=== PATIENT | female | born 1960 | race Two or more races ===

== ENCOUNTER 2023-10-20 10:00 | Inpatient (IN) | payer OTHER, MEDICAID ==
[2023-10-19 20:00] VITALS: PULSE 113; RESP 10; O2SAT 100
[2023-10-20] VITALS (34 sets, daily range): BP systolic 70–139; BP diastolic 41–67; PULSE 90–138; RESP 10–25; TEMP 97.2–97.9; O2SAT 95–100
[~2023-10-20] VITALS: Ht 154.9 cm; Wt 60.8 kg
[2023-10-20] MEDS: MORPHINE SULFATE 4 MG/ML SYR/VIAL IV ONE (10:15)
[2023-10-20] MEDS: ONDANSETRON HCL 4 MG/2 ML VIAL IV ONE (10:16)
[2023-10-20] MEDS: SODIUM CHLORIDE 0.9% 1,000 ML IVB ONE (10:16)
[2023-10-20 10:28] LABS: Basophils # (auto) 0 10 ^3/uL (0-0.2); Eosinophils # (auto) 0 10 ^3/uL (0-0.8); Hematocrit 32.2 % (36.0-46.0); Hemoglobin 10.4 g/dL (12.2-16.2); Lymphocytes # (auto) 0.8 10 ^3/uL (0.4-5.4); Lymphocytes % (auto) 17.3 % (10.0-50.0); Mean Corpuscular Hemoglobin 27.6 pg (28.0-32.0); Mean Corpuscular Hgb Conc. 32.4 g/dL (32.0-36.0); Mean Corpuscular Volume 84.9 fL (80.0-100.0); Monocytes # (auto) 0.1 10 ^3/uL (0-1.3); Monocytes % (auto) 1.7 % (0.0-12.0); Nucleated Red Blood Cells % 0.1 %; Platelet Count (auto) 334 10^3/uL (140-450); Red Blood Cells 3.79 10^6/uL (4.0-5.20); Red Cell Distribution Width 18.1 % (11.8-14.3); White Blood Cell 4.9 10^3/uL (4.4-10.8)
[2023-10-20 10:41] LABS: Alanine Aminotransferase 21 U/L (7-40); Alkaline Phosphatase 50 U/L (46-116); Anion Gap 12 (5-15); Aspartate Aminotransferase 12 U/L (13-40); BUN/Creatinine Ratio 28.1 (10.0-20.0); Blood Urea Nitrogen 38 mg/dL (9-23); Calcium 7.7 mg/dL (8.7-10.4); Carbon Dioxide 16 mmol/L (20-30); Chloride 105 mmol/L (98-107); Glucose 288 mg/dL (74-106); Potassium 3.9 mmol/L (3.5-5.1); Sodium 133 mmol/L (136-145)
[2023-10-20 10:42] LABS: Bilirubin, Total 0.4 mg/dL (0.2-1.0); Total Protein 4.4 g/dL (5.7-8.2)
[2023-10-20 10:53] LABS: Lactic Acid w/Reflex 4.5 mmol/L (0.4-2.0)
[2023-10-20] MEDS: SODIUM CHLORIDE 0.9% 1,000 ML IV ONE ×2 (11:58→16:15)
[2023-10-20] MEDS ORDERED: NITROGLYCERIN 0.4 MG SL TAB SL PRN (12:00)
[2023-10-20] MEDS ORDERED: DEXTROSE (50%) 50ML SYRG IV PRN (12:00)
[2023-10-20] MEDS ORDERED: CHOL1CAP21 PO (12:01)
[2023-10-20] MEDS ORDERED: ATOR20TA50 PO (12:01)
[2023-10-20] MEDS ORDERED: GLIP5TAB21 PO (12:01)
[2023-10-20] MEDS ORDERED: AMOX500C2 PO (12:01)
[2023-10-20] MEDS ORDERED: METF-371 PO (12:01)
[2023-10-20] MEDS ORDERED: SEMA4INJ SC (12:01)
[2023-10-20] MEDS ORDERED: PANT40T PO (12:01)
[2023-10-20] MEDS ORDERED: LISI-275 PO (12:01)
[2023-10-20] MEDS: PANTOPRAZOLE 40 MG/10 ML VIAL INJ IV ONE (12:11)
[2023-10-20] MEDS: cefTRIAXone 1GM/50ML D5W 50 ML IV ONE (12:11)
[2023-10-20] MEDS: SODIUM CHLORIDE 0.9% 1,000 ML IV SCH (12:13)
[2023-10-20] MEDS: metroNIDAZOLE 500MG/100ML 100 ML IV ONE (12:13)
[2023-10-20 12:21] LABS: INR 1.07 (0.9-1.15); Partial Thromboplastin Time 20.6 SEC (24.5-34.5); Prothrombin Time 11.3 sec (9.3-11.8)
[2023-10-20] MEDS: NOREPINEPHRINE 8 MG/250ML KIT 250 ML IV SCH (12:25)
[2023-10-20] MEDS: NOREPINEPHRINE 8 MG/250ML KIT 250 ML IV ONE (13:23)
[2023-10-20] MEDS ORDERED: fentaNYL CITRATE 5 ML ONE (14:34)
[2023-10-20] MEDS ORDERED: MIDAZOLAM HCL 2MG/2ML 2ml VIAL (1mg/ml) ONE (14:34)
[2023-10-20] MEDS ORDERED: ROCURONIUM 10MG/ML 10ML VIAL IV ONE (14:36)
[2023-10-20] MEDS: SODIUM BICARB 8.4% 50Meq/50ml SYR Vial IV ONE ×5 (15:10→20:48)
[2023-10-20] MEDS: POVIDONE IODINE 10 % TOPICAL OINT 30GM TOP ONE (16:00)
[2023-10-20] MEDS ORDERED: HYDROmorphone HCL 2 MG/ML VL/or syr ONE (16:04)
[2023-10-20] MEDS ORDERED: ETOMIDATE (2MG/ML) 20ML VIAL IV ONE (16:05)
[2023-10-20] MEDS: MIDAZOLAM DRIP 50 mg/50mL 50 ML IV SCH ×2 (16:15→16:38)
[2023-10-20] MEDS: fentaNYL Drip 2500mCg/250mlNS 250 ML IV SCH (16:38)
[2023-10-20] MEDS: D5W/SOD CHL 0.45%/KCL 20MEQ 1,000 ML IV SCH (16:59)
[2023-10-20] MEDS: PANTOPRAZOLE 40mg/50ML NS AE 50 ML IV SCH (17:00)
[2023-10-20] MEDS: metroNIDAZOLE 500MG/100ML 100 ML IV SCH (17:17)
[2023-10-20] MEDS: ACCU-CHEK COMFORT CURVE STRIP VI SCH ×2 (17:32→23:50)
[2023-10-20] MEDS: InsuLIN REG 1unit/0.01ml Soln (100units/ml) SC SCH ×2 (17:33→23:51)
[2023-10-20] MEDS ORDERED: CLINIMIX PER PHARMACY 0 ML IV SCH (18:00)
[2023-10-20] MEDS ORDERED: DEXTROSE (50%) 50ML SYRG IV SCH (20:00)
[2023-10-20 20:38] LABS: Base Excess -19.8 mmol/L (-2.0-2.0)
[2023-10-20] MEDS: SODIUM BICARB 50mEq/50ml Vial 150 ML in D5W 5% 1,000 ML IV SCH (20:48)
[2023-10-20] MEDS: PHENYLEPHRINE IV 250 ML IV ONE (21:10)
[2023-10-20] MEDS: PHENYLEPHRINE IV 250 ML IV SCH (21:18)
[2023-10-20] MEDS: VASOPRESSIN 20 UNITS in SODIUM CHL 0.9% 99 ML IV SCH (21:27)
[2023-10-20 21:52] LABS: Base Excess -10.5 mmol/L (-2.0-2.0)
[2023-10-20 22:00] LABS: Basophils # (auto) 0 10 ^3/uL (0-0.2); Eosinophils # (auto) 0 10 ^3/uL (0-0.8); Eosinophils % (auto) 0.4 % (0.0-7.0); Hematocrit 29.2 % (36.0-46.0); Hemoglobin 9.9 g/dL (12.2-16.2); Lymphocytes # (auto) 0.3 10 ^3/uL (0.4-5.4); Lymphocytes % (auto) 13.8 % (10.0-50.0); Mean Corpuscular Hemoglobin 28.2 pg (28.0-32.0); Mean Corpuscular Hgb Conc. 33.9 g/dL (32.0-36.0); Mean Corpuscular Volume 83.2 fL (80.0-100.0); Monocytes # (auto) 0.1 10 ^3/uL (0-1.3); Monocytes % (auto) 2.3 % (0.0-12.0); Neutrophils % (auto) 83.5 % (37.0-80.0); Nucleated Red Blood Cells % 0.1 %; Platelet Count (auto) 312 10^3/uL (140-450); Red Blood Cells 3.51 10^6/uL (4.0-5.20); Red Cell Distribution Width 18.2 % (11.8-14.3); White Blood Cell 2.4 10^3/uL (4.4-10.8)
[2023-10-20] MEDS ORDERED: DOPamine 1600MCG/ML D5W 250 ML IV SCH (22:00)
[2023-10-20] MEDS: FUROSEMIDE 20 MG/2 ML VIAL IV ONE (22:00)
[2023-10-20 22:19] LABS: Alanine Aminotransferase 21 U/L (7-40); Albumin 1.9 g/dL (3.2-4.8); Alkaline Phosphatase 36 U/L (46-116); Anion Gap 10 (5-15); Aspartate Aminotransferase 23 U/L (13-40); BUN/Creatinine Ratio 26.2 (10.0-20.0); Blood Urea Nitrogen 38 mg/dL (9-23); Calcium 6.3 mg/dL (8.7-10.4); Carbon Dioxide 17 mmol/L (20-30); Chloride 112 mmol/L (98-107); Glucose 353 mg/dL (74-106); Magnesium 1.5 mg/dL (1.6-2.6); Potassium 3.7 mmol/L (3.5-5.1); Sodium 139 mmol/L (136-145)
[2023-10-20 22:20] LABS: Bilirubin, Total 0.2 mg/dL (0.2-1.0); Phosphorus 2.8 mg/dL (2.4-5.1)
[2023-10-20 22:22] LABS: Lactic Acid w/Reflex 3.2 mmol/L (0.4-2.0)
[2023-10-20] MEDS: CALCIUM CHL 100MG/ML 1,000 MG in D5W 5% 100 ML IV ONE (22:45)
[2023-10-20] MEDS: DOPamine 1600MCG/ML D5W 250 ML IV SCH (22:45)
[2023-10-20] MEDS: ALBUMIN 25% 50 ML IV SCH (23:47)
[2023-10-21] VITALS (107 sets, daily range): BP systolic 85–166; BP diastolic 40–78; PULSE 86–105; RESP 16–27; TEMP 97.5–99.1; O2SAT 90–100
[2023-10-21] MEDS: MAGNESIUM SULFATE 1GM/100ML 100 ML IV SCH
[2023-10-21] MEDS: AMINO ACID INFUSION IN D10W 1,000 ML IV SCH (00:36)
[2023-10-21] MEDS: CALCIUM CHLOR(10%) 100MG/ML 10ML SYRINGE IV ONE (00:44)
[2023-10-21 04:25] LABS: Basophils # (auto) 0 10 ^3/uL (0-0.2); Basophils % (auto) 0.1 % (0.0-2.0); Eosinophils # (auto) 0 10 ^3/uL (0-0.8); Hematocrit 25.4 % (36.0-46.0); Hemoglobin 8.3 g/dL (12.2-16.2); Lymphocytes # (auto) 0.5 10 ^3/uL (0.4-5.4); Monocytes # (auto) 0.1 10 ^3/uL (0-1.3); Red Cell Distribution Width 18.2 % (11.8-14.3)
[2023-10-21 04:28] LABS: Eosinophils % (auto) 0.9 % (0.0-7.0); Lymphocytes % (auto) 12.3 % (10.0-50.0); Mean Corpuscular Hemoglobin 27.9 pg (28.0-32.0); Mean Corpuscular Hgb Conc. 32.6 g/dL (32.0-36.0); Mean Corpuscular Volume 85.4 fL (80.0-100.0); Monocytes % (auto) 2.8 % (0.0-12.0); Neutrophils # (auto) 3.1 10 ^3/uL (1.6-8.6); Neutrophils % (auto) 83.9 % (37.0-80.0); Platelet Count (auto) 239 10^3/uL (140-450); Red Blood Cells 2.97 10^6/uL (4.0-5.20); White Blood Cell 3.7 10^3/uL (4.4-10.8)
[2023-10-21 04:50] LABS: Alanine Aminotransferase 19 U/L (7-40); Albumin 1.9 g/dL (3.2-4.8); Alkaline Phosphatase 36 U/L (46-116); Anion Gap 13 (5-15); Aspartate Aminotransferase 26 U/L (13-40); BUN/Creatinine Ratio 22.4 (10.0-20.0); Bilirubin, Total < 0.2 mg/dL (0.2-1.0); Blood Urea Nitrogen 36 mg/dL (9-23); Calcium 6.5 mg/dL (8.7-10.4); Carbon Dioxide 15 mmol/L (20-30); Chloride 106 mmol/L (98-107); Cholesterol 95 mg/dL (< 200); HDL Cholesterol 27 mg/dL (40-59); LDL Cholesterol 25 mg/dL (< 100); Phosphorus 2.2 mg/dL (2.4-5.1); Potassium 3.4 mmol/L (3.5-5.1); Total Protein 2.9 g/dL (5.7-8.2); Triglycerides 226 mg/dL (< 150)
[2023-10-21 05:06] LABS: Sodium 134 mmol/L (136-145)
[2023-10-21 05:08] LABS: Glucose 570 mg/dL (74-106)
[2023-10-21] MEDS: VASOPRESSIN 20 UNIT/ML ONE (05:53)
[2023-10-21] MEDS: SODIUM BICARB 8.4% 50Meq/50ml SYR Vial IV ONE (07:13)
[2023-10-21 07:24] LABS: Base Excess -13.4 mmol/L (-2.0-2.0)
[2023-10-21] MEDS: cefTRIAXone 1GM/50ML D5W 50 ML IV SCH (07:57)
[2023-10-21] MEDS: POTASSIUM PHOSPHATE 26.4 MEQ in SODIUM CHL 0.9% 100 ML IV ONE ×2 (08:12→08:15)
[2023-10-21] MEDS: PANTOPRAZOLE 40 MG/10 ML VIAL INJ IV SCH (10:00)
[2023-10-21] MEDS ORDERED: DEXTROSE (50%) 50ML SYRG IV PRN (11:45)
[2023-10-21] MEDS ORDERED: BUSP5TAB51 PO (13:14)
[2023-10-21] MEDS: SODIUM CHLORIDE 0.9% 1,000 ML IV SCH ×2 (13:41)
[2023-10-21] MEDS: ACCU-CHEK COMFORT CURVE STRIP VI SCH (13:43)
[2023-10-21] MEDS: InsuLIN REG 1unit/0.01ml Soln (100units/ml) SC SCH (13:46)
[2023-10-21 15:57] LABS: Lactic Acid w/Reflex 6.1 mmol/L (0.4-2.0)
[2023-10-21] MEDS ORDERED: InsuLIN REG 1unit/0.01ml Soln (100units/ml) SC SCH (22:00)
[2023-10-21] MEDS: INSULIN LANTUS (GLARGINE) 1 /0.01ml (100units/ml) SC SCH (22:00)
[2023-10-22] VITALS (109 sets, daily range): BP systolic 77–177; BP diastolic 44–99; PULSE 94–112; RESP 20–24; TEMP 96.8–98.6; O2SAT 91–100
[2023-10-22 02:42] LABS: COVID19 ANTIGEN SOFIA FIA NEGATIVE (NEGATIVE)
[2023-10-22 04:27] LABS: Hematocrit 24.4 % (36.0-46.0); Hemoglobin 8.2 g/dL (12.2-16.2); Mean Corpuscular Hemoglobin 27.9 pg (28.0-32.0); Mean Corpuscular Hgb Conc. 33.5 g/dL (32.0-36.0); Mean Corpuscular Volume 83.4 fL (80.0-100.0); Platelet Count (auto) 145 10^3/uL (140-450); Red Blood Cells 2.93 10^6/uL (4.0-5.20); Red Cell Distribution Width 18.6 % (11.8-14.3); White Blood Cell 9.5 10^3/uL (4.4-10.8)
[2023-10-22 04:32] LABS: Basophils % (manual) 0 (0.0-2.0); Blast Cells 0; Promyelocytes % 0; Reactive Lymphocytes 0
[2023-10-22 04:48] LABS: Alanine Aminotransferase 17 U/L (7-40); Alkaline Phosphatase 62 U/L (46-116); Anion Gap 13 (5-15); Aspartate Aminotransferase 16 U/L (13-40); BUN/Creatinine Ratio 21.8 (10.0-20.0); Blood Urea Nitrogen 38 mg/dL (9-23); Carbon Dioxide 19 mmol/L (20-30); Chloride 101 mmol/L (98-107); Glucose 369 mg/dL (74-106); LDL Cholesterol 20 mg/dL (< 100); Magnesium 1.5 mg/dL (1.6-2.6); Sodium 133 mmol/L (136-145); Triglycerides 197 mg/dL (< 150)
[2023-10-22 04:49] LABS: Albumin 2.3 g/dL (3.2-4.8); Bilirubin, Total 0.2 mg/dL (0.2-1.0); Cholesterol 88 mg/dL (< 200); HDL Cholesterol 21 mg/dL (40-59); Phosphorus 2.5 mg/dL (2.4-5.1); Total Protein 3.4 g/dL (5.7-8.2)
[2023-10-22 05:06] LABS: Calcium 5.8 mg/dL (8.7-10.4)
[2023-10-22 05:17] LABS: Urine Bacteria FEW /hpf (None Seen); Urine Blood 1+ /uL (Negative); Urine Budding Yeast FEW /hpf (None Seen); Urine Clarity Clear (Clear); Urine Color Light-Yellow (Yellow); Urine Mucus FEW (None Seen); Urine Protein, UAD TRACE (Negative); Urine Specific Gravity 1.006 (1.001-1.035); Urine Urobilinogen Normal (Negative); Urine WBC 2 /hpf (0 - 5); Urine pH 5.5 (5.0-9.0)
[2023-10-22] MEDS: CALCIUM GLUC 1,000mg/50ml-NS 50 ML IV ONE (06:25)
[2023-10-22] MEDS: POTASSIUM CHL 20MEQ/100ML 100 ML IV ONE (06:48)
[2023-10-22 06:49] LABS: Anisocytosis Slight; Band Neutrophils % (manual) 31; Eosinophils % (manual) 1 (0-7); Lymphocytes % (manual) 3 (10.0-50.0); Metamyelocytes % 1; Monocytes % (manual) 1 (0-12); Myelocytes % 3; Platelet Estimate Adequate
[2023-10-22] MEDS: MAGNESIUM SULFATE 1GM/100ML 100 ML IV ONE (07:06)
[2023-10-22 07:31] LABS: Base Excess -3.8 mmol/L (-2.0-2.0)
[2023-10-22 12:07] LABS: Anion Gap 11 (5-15); BUN/Creatinine Ratio 21.1 (10.0-20.0); Blood Urea Nitrogen 38 mg/dL (9-23); Carbon Dioxide 20 mmol/L (20-30); Chloride 102 mmol/L (98-107); Glucose 293 mg/dL (74-106); Potassium 2.9 mmol/L (3.5-5.1); Sodium 133 mmol/L (136-145)
[2023-10-22 12:09] LABS: Calcium 5.8 mg/dL (8.7-10.4)
[2023-10-22 12:10] LABS: Creatinine, Urine 8.51 mg/dL (30.0-125.0)
[2023-10-22] MEDS: MAGNESIUM SULFATE 1GM/100ML 100 ML IV SCH (12:31)
[2023-10-22] MEDS: ALBUMIN 25% 100 ML IV SCH (12:57)
[2023-10-22] MEDS: POTASSIUM PHOSPHATE 26.4 MEQ in SODIUM CHL 0.9% 100 ML IV ONE (13:22)
[2023-10-22] MEDS ORDERED: TPN PER PHARMACY 0 ML IV SCH ×2 (13:30→14:15)
[2023-10-22] MEDS: POTASSIUM CHL 20MEQ/100ML 100 ML IV SCH (15:05)
[2023-10-23] VITALS (111 sets, daily range): BP systolic 83–182; BP diastolic 44–89; PULSE 79–110; RESP 16–24; TEMP 97.9–99; O2SAT 85–100
[2023-10-23 05:23] LABS: Chloride 106 mmol/L (98-107); Sodium 136 mmol/L (136-145)
[2023-10-23 05:24] LABS: Platelet Count (auto) 89 10^3/uL (140-450)
[2023-10-23 05:26] LABS: Hematocrit 17.3 % (36.0-46.0); Mean Corpuscular Hemoglobin 28.5 pg (28.0-32.0); Mean Corpuscular Hgb Conc. 34.8 g/dL (32.0-36.0); Mean Corpuscular Volume 81.7 fL (80.0-100.0); Red Blood Cells 2.11 10^6/uL (4.0-5.20); Red Cell Distribution Width 18.8 % (11.8-14.3); White Blood Cell 5.8 10^3/uL (4.4-10.8)
[2023-10-23 05:32] LABS: Alkaline Phosphatase 113 U/L (46-116); Glucose 105 mg/dL (74-106)
[2023-10-23 05:33] LABS: BUN/Creatinine Ratio 19.7 (10.0-20.0); Blood Urea Nitrogen 36 mg/dL (9-23); Magnesium 1.9 mg/dL (1.6-2.6)
[2023-10-23 05:34] LABS: Alanine Aminotransferase 12 U/L (7-40); Albumin 2.8 g/dL (3.2-4.8); Aspartate Aminotransferase 14 U/L (13-40)
[2023-10-23 05:35] LABS: Bilirubin, Total 0.4 mg/dL (0.2-1.0); Phosphorus 1.4 mg/dL (2.4-5.1); Total Protein 4.1 g/dL (5.7-8.2)
[2023-10-23 05:44] LABS: Basophils % (manual) 0 (0.0-2.0); Blast Cells 0; Metamyelocytes % 0; Myelocytes % 0; Promyelocytes % 0; Reactive Lymphocytes 0
[2023-10-23 05:54] LABS: Anion Gap 10 (5-15); Carbon Dioxide 20 mmol/L (20-30)
[2023-10-23] MEDS: POTASSIUM PHOSPHATE 44 MEQ in D5W 5% 250 ML IV ONE (07:00)
[2023-10-23 07:58] LABS: Base Excess -3.8 mmol/L (-2.0-2.0)
[2023-10-23 08:39] LABS: Band Neutrophils % (manual) 17; Eosinophils % (manual) 2 (0-7); Lymphocytes % (manual) 8 (10.0-50.0); Monocytes % (manual) 4 (0-12); Platelet Estimate Decreased
[2023-10-23] MEDS ORDERED: DEXTROSE (50%) 50ML SYRG IV PRN (10:45)
[2023-10-23] MEDS ORDERED: POVIDONE IODINE 10 % TOPICAL OINT 30GM TOP ONE (11:04)
[2023-10-23] MEDS: ACCU-CHEK COMFORT CURVE STRIP VI SCH (11:30)
[2023-10-23] MEDS: InsuLIN REG 1unit/0.01ml Soln (100units/ml) SC SCH (11:30)
[2023-10-23 12:50] LABS: Base Excess -5.3 mmol/L (-2.0-2.0)
[2023-10-23] MEDS: CALCIUM GLUC 1,000mg/50ml-NS 50 ML IV SCH (13:13)
[2023-10-23] MEDS: SODIUM CHLORIDE 0.9% 1,000 ML IV SCH (15:59)
[2023-10-23 17:14] LABS: Potassium 3.5 mmol/L (3.5-5.1)
[2023-10-23 17:21] LABS: Phosphorus 3.4 mg/dL (2.4-5.1)
[2023-10-23] MEDS: POTASSIUM CHL 20MEQ/100ML 100 ML IV SCH (18:21)
[2023-10-23] MEDS: TPN PER PHARMACY IV NR (20:00)
[2023-10-24] VITALS (107 sets, daily range): BP systolic 84–204; BP diastolic 49–197; PULSE 77–117; RESP 16–27; TEMP 81–99.3; O2SAT 96–100
[2023-10-24 04:12] LABS: Hematocrit 23.3 % (36.0-46.0); Mean Corpuscular Hemoglobin 28.8 pg (28.0-32.0); Mean Corpuscular Hgb Conc. 34.2 g/dL (32.0-36.0); Mean Corpuscular Volume 84.2 fL (80.0-100.0); Platelet Count (auto) 75 10^3/uL (140-450); Red Blood Cells 2.77 10^6/uL (4.0-5.20); White Blood Cell 6.5 10^3/uL (4.4-10.8)
[2023-10-24 04:25] LABS: Alanine Aminotransferase 11 U/L (7-40); Albumin 2.5 g/dL (3.2-4.8); Alkaline Phosphatase 322 U/L (46-116); Anion Gap 9 (5-15); Aspartate Aminotransferase 14 U/L (13-40); BUN/Creatinine Ratio 17.3 (10.0-20.0); Blood Urea Nitrogen 34 mg/dL (9-23); Calcium 6.2 mg/dL (8.7-10.4); Carbon Dioxide 20 mmol/L (20-30); Chloride 110 mmol/L (98-107); Glucose 207 mg/dL (74-106); Magnesium 1.7 mg/dL (1.6-2.6); Potassium 3.7 mmol/L (3.5-5.1); Sodium 139 mmol/L (136-145)
[2023-10-24 04:26] LABS: Basophils % (manual) 0 (0.0-2.0); Bilirubin, Total 0.8 mg/dL (0.2-1.0); Blast Cells 0; Eosinophils % (manual) 0 (0-7); Metamyelocytes % 0; Myelocytes % 0; Phosphorus 2.9 mg/dL (2.4-5.1); Promyelocytes % 0; Reactive Lymphocytes 0; Total Protein 3.9 g/dL (5.7-8.2)
[2023-10-24 05:21] LABS: Anisocytosis Slight; Band Neutrophils % (manual) 7; Lymphocytes % (manual) 8 (10.0-50.0); Monocytes % (manual) 1 (0-12); Ovalocytes FEW; Platelet Estimate Decreased
[2023-10-24 07:40] LABS: Base Excess -7.3 mmol/L (-2.0-2.0)
[2023-10-24 09:42] LABS: Urine Bacteria None Seen /hpf (None Seen)
[2023-10-24 10:00] LABS: Urine Blood 2+ /uL (Negative); Urine Budding Yeast LOADED /hpf (None Seen); Urine Clarity Turbid (Clear); Urine Color Light-Yellow (Yellow); Urine Protein, UAD 1+ (Negative); Urine Specific Gravity 1.008 (1.001-1.035); Urine Urobilinogen Normal (Negative); Urine WBC 17 /hpf (0 - 5); Urine pH 6.5 (5.0-9.0)
[2023-10-24 10:23] LABS: Creatinine, Urine 14.92 mg/dL (30.0-125.0)
[2023-10-24] MEDS: CALCIUM GLUC 1,000mg/50ml-NS 50 ML IV ONE (10:38)
[2023-10-24] MEDS: FUROSEMIDE 40 MG/4 ML VIAL IV ONE (15:03)
[2023-10-24] MEDS: TPN PER PHARMACY IV NR (20:03)
[2023-10-25] VITALS (101 sets, daily range): BP systolic 73–178; BP diastolic 43–157; PULSE 99–131; RESP 17–29; TEMP 92.1–99.5; O2SAT 94–100
[2023-10-25 04:45] LABS: Hematocrit 25.8 % (36.0-46.0); Hemoglobin 8.6 g/dL (12.2-16.2); Mean Corpuscular Hemoglobin 28.3 pg (28.0-32.0); Mean Corpuscular Hgb Conc. 33.4 g/dL (32.0-36.0); Mean Corpuscular Volume 84.7 fL (80.0-100.0); Platelet Count (auto) 76 10^3/uL (140-450); Red Blood Cells 3.05 10^6/uL (4.0-5.20); Red Cell Distribution Width 19.1 % (11.8-14.3); White Blood Cell 6.8 10^3/uL (4.4-10.8)
[2023-10-25 04:56] LABS: Alanine Aminotransferase 11 U/L (7-40); Albumin 2.6 g/dL (3.2-4.8); Alkaline Phosphatase 348 U/L (46-116); Anion Gap 11 (5-15); Aspartate Aminotransferase 9 U/L (13-40); BUN/Creatinine Ratio 16.6 (10.0-20.0); Blood Urea Nitrogen 34 mg/dL (9-23); Calcium 6.9 mg/dL (8.7-10.4); Carbon Dioxide 19 mmol/L (20-30); Chloride 112 mmol/L (98-107); Glucose 217 mg/dL (74-106); Magnesium 1.6 mg/dL (1.6-2.6); Potassium 2.8 mmol/L (3.5-5.1); Sodium 142 mmol/L (136-145)
[2023-10-25 04:57] LABS: Bilirubin, Total 0.6 mg/dL (0.2-1.0); Phosphorus 2.7 mg/dL (2.4-5.1)
[2023-10-25 05:09] LABS: Basophils % (manual) 0 (0.0-2.0); Blast Cells 0; Eosinophils % (manual) 0 (0-7); Metamyelocytes % 0; Promyelocytes % 0; Reactive Lymphocytes 0
[2023-10-25] MEDS: POTASSIUM CHL 20MEQ/100ML 100 ML IV SCH (06:29)
[2023-10-25] MEDS: MAGNESIUM SULFATE 1GM/100ML 100 ML IV SCH (06:30)
[2023-10-25 06:43] LABS: Base Excess -6.4 mmol/L (-2.0-2.0)
[2023-10-25 07:02] LABS: Anisocytosis Slight; Band Neutrophils % (manual) 14; Lymphocytes % (manual) 2 (10.0-50.0); Monocytes % (manual) 1 (0-12); Myelocytes % 1; Platelet Estimate Decreased
[2023-10-25 08:06] LABS: Albumin Urine 8.4 % (.); Alpha-1-Globulin Urine 6.1 % (.); Gamma Globulin Urine 3.6 % (.); Protein Total Urine 11.5 mg/dL (Not Estab.)
[2023-10-25 09:34] LABS: Base Excess -5.5 mmol/L (-2.0-2.0)
[2023-10-25] MEDS: CALCIUM GLUC 1,000mg/50ml-NS 50 ML IV SCH (14:17)
[2023-10-25 17:11] LABS: Potassium 3.5 mmol/L (3.5-5.1)
[2023-10-25 17:12] LABS: Calcium 7.7 mg/dL (8.7-10.4)
[2023-10-25 17:17] LABS: Magnesium 1.9 mg/dL (1.6-2.6)
[2023-10-25] MEDS: METOPROLOL TARTRATE 1MG/1ML-5ML VIAL IV PRN (18:15)
[2023-10-25] MEDS: LEVALBUTEROL HCL 1.25 MG/3 ML NEB NEB SCH (19:15)
[2023-10-25] MEDS: LEVALBUTEROL HCL 1.25 MG/3 ML NEB NEB ONE (19:23)
[2023-10-25] MEDS: IPRATROPIUM BROM 0.5 MG/2.5ML INH SOL NEB ONE (19:23)
[2023-10-25] MEDS: TPN PER PHARMACY IV NR (19:36)
[2023-10-25] MEDS: diphenhdrAMINE HCL 50 MG/1 ML VL IV ONE (21:15)
[2023-10-26] VITALS (83 sets, daily range): BP systolic 93–180; BP diastolic 50–94; PULSE 94–123; RESP 6–28; TEMP 96.8–100; O2SAT 90–99
[2023-10-26] MEDS: MORPHINE SULFATE INJ 2 MG/ml SYRG IV PRN (02:04)
[2023-10-26] MEDS: ONDANSETRON HCL 4 MG/2 ML VIAL IV PRN (02:48)
[2023-10-26] MEDS: HYDROmorphone HCL 2 MG/ML VL/or syr IV PRN (02:51)
[2023-10-26 04:24] LABS: Basophils # (auto) 0 10 ^3/uL (0-0.2); Basophils % (auto) 0.1 % (0.0-2.0); Eosinophils # (auto) 0 10 ^3/uL (0-0.8); Eosinophils % (auto) 0.3 % (0.0-7.0); Hematocrit 26.7 % (36.0-46.0); Hemoglobin 8.8 g/dL (12.2-16.2); Lymphocytes # (auto) 0.4 10 ^3/uL (0.4-5.4); Lymphocytes % (auto) 3.9 % (10.0-50.0); Mean Corpuscular Hemoglobin 28.2 pg (28.0-32.0); Mean Corpuscular Hgb Conc. 33.1 g/dL (32.0-36.0); Mean Corpuscular Volume 85.3 fL (80.0-100.0); Monocytes # (auto) 0.1 10 ^3/uL (0-1.3); Neutrophils # (auto) 8.8 10 ^3/uL (1.6-8.6); Neutrophils % (auto) 94.7 % (37.0-80.0); Nucleated Red Blood Cells % 0.1 %; Platelet Count (auto) 66 10^3/uL (140-450); Red Blood Cells 3.13 10^6/uL (4.0-5.20); Red Cell Distribution Width 19.9 % (11.8-14.3); White Blood Cell 9.3 10^3/uL (4.4-10.8)
[2023-10-26 04:44] LABS: Alkaline Phosphatase 380 U/L (46-116); Anion Gap 7 (5-15); BUN/Creatinine Ratio 19.2 (10.0-20.0); Blood Urea Nitrogen 37 mg/dL (9-23); Calcium 7.6 mg/dL (8.7-10.4); Carbon Dioxide 23 mmol/L (20-30); Chloride 112 mmol/L (98-107); Glucose 244 mg/dL (74-106); Magnesium 1.8 mg/dL (1.6-2.6); Potassium 3.1 mmol/L (3.5-5.1); Sodium 142 mmol/L (136-145)
[2023-10-26 04:45] LABS: Albumin 2.4 g/dL (3.2-4.8); Aspartate Aminotransferase 8 U/L (13-40); Bilirubin, Total 0.5 mg/dL (0.2-1.0); Phosphorus 3.2 mg/dL (2.4-5.1); Total Protein 3.9 g/dL (5.7-8.2)
[2023-10-26 04:58] LABS: Alanine Aminotransferase < 9 U/L (7-40)
[2023-10-26] MEDS: POTASSIUM CHL 20MEQ/100ML 100 ML IV SCH (05:37)
[2023-10-26] MEDS ORDERED: POTASSIUM CHL 20MEQ/100ML 100 ML IV SCH (08:15)
[2023-10-26] MEDS: MAGNESIUM SULFATE 1GM/100ML 100 ML IV ONE (09:20)
[2023-10-26] MEDS: FUROSEMIDE 40 MG/4 ML VIAL IV ONE (09:20)
[2023-10-26] MEDS: GASTROGRAFIN 120 ML SOL ONE (09:54)
[2023-10-26] MEDS ORDERED: DEXTROSE (50%) 50ML SYRG IV PRN (10:45)
[2023-10-26] MEDS: ACCU-CHEK COMFORT CURVE STRIP VI SCH (11:29)
[2023-10-26] MEDS: ALBUMIN 25% 50 ML IV SCH (11:29)
[2023-10-26] MEDS: InsuLIN REG 1unit/0.01ml Soln (100units/ml) SC SCH (11:39)
[2023-10-26 12:20] LABS: Base Excess -6.1 mmol/L (-2.0-2.0)
[2023-10-26 13:39] LABS: Base Excess -5.5 mmol/L (-2.0-2.0)
[2023-10-26 15:28] LABS: INR 1.27 (0.9-1.15); Prothrombin Time 13.2 sec (9.3-11.8)
[2023-10-26] MEDS: ACETAMINOPHEN 325 MG RECT SUPP PR PRN (16:36)
[2023-10-26] MEDS: FUROSEMIDE 40 MG/4 ML VIAL IV SCH (18:24)
[2023-10-26] MEDS: TPN PER PHARMACY IV NR (19:26)
[2023-10-26] MEDS: LEVALBUTEROL HCL 1.25 MG/3 ML NEB NEB PRN (20:13)
[2023-10-26] MEDS: IPRATROPIUM BROM 0.5 MG/2.5ML INH SOL NEB PRN (20:13)
[2023-10-26] MEDS: MORPHINE SULFATE 4 MG/ML SYR/VIAL IV PRN (21:12)
[2023-10-26] MEDS: hydrALAZINE HCL 20 MG/ML VL IV PRN (21:38)
[2023-10-27] VITALS (57 sets, daily range): BP systolic 118–179; BP diastolic 55–94; PULSE 96–118; RESP 12–25; TEMP 95.5–99.5; O2SAT 94–100
[2023-10-27 04:24] LABS: Basophils # (auto) 0 10 ^3/uL (0-0.2); Eosinophils # (auto) 0.1 10 ^3/uL (0-0.8); Lymphocytes # (auto) 0.5 10 ^3/uL (0.4-5.4); Monocytes # (auto) 0.2 10 ^3/uL (0-1.3); White Blood Cell 10.7 10^3/uL (4.4-10.8)
[2023-10-27 04:28] LABS: Basophils % (auto) 0.1 % (0.0-2.0); Eosinophils % (auto) 0.7 % (0.0-7.0); Hematocrit 24.6 % (36.0-46.0); Hemoglobin 8.2 g/dL (12.2-16.2); Lymphocytes % (auto) 4.5 % (10.0-50.0); Mean Corpuscular Hemoglobin 28.5 pg (28.0-32.0); Mean Corpuscular Hgb Conc. 33.3 g/dL (32.0-36.0); Mean Corpuscular Volume 85.7 fL (80.0-100.0); Monocytes % (auto) 1.8 % (0.0-12.0); Neutrophils % (auto) 92.9 % (37.0-80.0); Platelet Count (auto) 65 10^3/uL (140-450); Red Blood Cells 2.88 10^6/uL (4.0-5.20); Red Cell Distribution Width 19.9 % (11.8-14.3)
[2023-10-27 04:47] LABS: Alanine Aminotransferase < 9 U/L (7-40); Albumin 2.7 g/dL (3.2-4.8); Alkaline Phosphatase 316 U/L (46-116); Anion Gap 7 (5-15); Aspartate Aminotransferase < 8 U/L (13-40); BUN/Creatinine Ratio 19.8 (10.0-20.0); Bilirubin, Total 0.5 mg/dL (0.2-1.0); Blood Urea Nitrogen 39 mg/dL (9-23); Carbon Dioxide 24 mmol/L (20-30); Chloride 111 mmol/L (98-107); Glucose 175 mg/dL (74-106); Magnesium 2.1 mg/dL (1.6-2.6); Phosphorus 2.6 mg/dL (2.4-5.1); Sodium 142 mmol/L (136-145); Total Protein 4.2 g/dL (5.7-8.2)
[2023-10-27] MEDS: POTASSIUM CHL 20MEQ/100ML 100 ML IV SCH (06:15)
[2023-10-27] MEDS ORDERED: SENNA 8.6 MG TAB PO PRN (14:30)
[2023-10-27] MEDS: DOCUSATE ORAL LIQUID 100 MG/10 ML UD GT PRN (18:45)
[2023-10-27] MEDS: TPN PER PHARMACY IV NR (20:17)
[2023-10-28] VITALS (34 sets, daily range): BP systolic 108–164; BP diastolic 51–86; PULSE 92–107; RESP 11–27; TEMP 98.1–99.3; O2SAT 96–99
[2023-10-28] MEDS: ACETAMINOPHEN 325 MG TAB PO PRN (10:28)
[2023-10-28 10:37] LABS: Basophils # (auto) 0 10 ^3/uL (0-0.2); Basophils % (auto) 0.2 % (0.0-2.0); Eosinophils # (auto) 0.1 10 ^3/uL (0-0.8); Eosinophils % (auto) 0.8 % (0.0-7.0); Hematocrit 27.1 % (36.0-46.0); Hemoglobin 8.7 g/dL (12.2-16.2); Lymphocytes # (auto) 0.7 10 ^3/uL (0.4-5.4); Lymphocytes % (auto) 6.9 % (10.0-50.0); Mean Corpuscular Hemoglobin 27.1 pg (28.0-32.0); Mean Corpuscular Hgb Conc. 32.3 g/dL (32.0-36.0); Mean Corpuscular Volume 83.9 fL (80.0-100.0); Monocytes # (auto) 0.3 10 ^3/uL (0-1.3); Monocytes % (auto) 2.9 % (0.0-12.0); Neutrophils # (auto) 9.7 10 ^3/uL (1.6-8.6); Neutrophils % (auto) 89.2 % (37.0-80.0); Platelet Count (auto) 96 10^3/uL (140-450); Red Blood Cells 3.23 10^6/uL (4.0-5.20); Red Cell Distribution Width 19.9 % (11.8-14.3); White Blood Cell 10.9 10^3/uL (4.4-10.8)
[2023-10-28 10:52] LABS: Albumin 2.8 g/dL (3.2-4.8); Aspartate Aminotransferase 8 U/L (13-40); Bilirubin, Total 0.5 mg/dL (0.2-1.0); Chloride 107 mmol/L (98-107); Potassium 2.7 mmol/L (3.5-5.1); Sodium 141 mmol/L (136-145); Total Protein 4.5 g/dL (5.7-8.2)
[2023-10-28 10:55] LABS: Anion Gap 5 (5-15); Calcium 8.3 mg/dL (8.7-10.4); Carbon Dioxide 29 mmol/L (20-30)
[2023-10-28 10:59] LABS: Alanine Aminotransferase < 9 U/L (7-40)
[2023-10-28 11:00] LABS: BUN/Creatinine Ratio 25.7 (10.0-20.0); Glucose 195 mg/dL (74-106)
[2023-10-28 11:01] LABS: Alkaline Phosphatase 352 U/L (46-116)
[2023-10-28 11:19] LABS: Blood Urea Nitrogen 49 mg/dL (9-23)
[2023-10-28 11:45] LABS: Magnesium 1.9 mg/dL (1.6-2.6)
[2023-10-28 11:47] LABS: Phosphorus 2.7 mg/dL (2.4-5.1)
[2023-10-28] MEDS: POTASSIUM CHL 20MEQ/100ML 100 ML IV SCH (13:13)
[2023-10-28] MEDS: POTASSIUM CHL 20 Meq TABLET PO ONE (13:15)
[2023-10-28] MEDS: MAGNESIUM SULFATE 1GM/100ML 100 ML IV SCH (17:27)
[2023-10-28] MEDS: TPN PER PHARMACY IV NR (20:29)
[2023-10-29] VITALS (11 sets, daily range): BP systolic 111–122; BP diastolic 60–65; PULSE 88–110; RESP 16–20; TEMP 98.2–98.8; O2SAT 92–100
[2023-10-29 07:36] LABS: Albumin 2.6 g/dL (3.2-4.8); Alkaline Phosphatase 348 U/L (46-116); Anion Gap 4 (5-15); Aspartate Aminotransferase 9 U/L (13-40); BUN/Creatinine Ratio 28.5 (10.0-20.0); Blood Urea Nitrogen 49 mg/dL (9-23); Carbon Dioxide 29 mmol/L (20-30); Chloride 106 mmol/L (98-107); Glucose 166 mg/dL (74-106); Magnesium 2.4 mg/dL (1.6-2.6); Potassium 3.3 mmol/L (3.5-5.1); Sodium 139 mmol/L (136-145)
[2023-10-29 07:37] LABS: Phosphorus 2.2 mg/dL (2.4-5.1)
[2023-10-29 07:38] LABS: Alanine Aminotransferase < 9 U/L (7-40); Bilirubin, Total 0.4 mg/dL (0.2-1.0); Total Protein 4.2 g/dL (5.7-8.2)
[2023-10-29] MEDS: POTASSIUM CHL 20MEQ/100ML 100 ML IV ONE (08:51)
[2023-10-29] MEDS: POTASSIUM PHOSPHATE 22 MEQ in SODIUM CHL 0.9% 100 ML IV ONE (14:59)
[2023-10-29] MEDS: TPN PER PHARMACY IV NR (21:19)
[2023-10-30] VITALS (11 sets, daily range): BP systolic 104–135; BP diastolic 51–67; PULSE 95–107; RESP 14–20; TEMP 97.8–98.5; O2SAT 96–99
[2023-10-30] MEDS: POTASSIUM EFFERVESENT TAB 25 MEQ PO SCH (06:51)
[2023-10-30 07:00] LABS: Albumin 2.4 g/dL (3.2-4.8); Alkaline Phosphatase 268 U/L (46-116); Anion Gap 7 (5-15); Aspartate Aminotransferase 10 U/L (13-40); BUN/Creatinine Ratio 27.6 (10.0-20.0); Bilirubin, Total 0.4 mg/dL (0.2-1.0); Blood Urea Nitrogen 43 mg/dL (9-23); Calcium 7.6 mg/dL (8.7-10.4); Carbon Dioxide 27 mmol/L (20-30); Chloride 105 mmol/L (98-107); Glucose 187 mg/dL (74-106); Magnesium 2.1 mg/dL (1.6-2.6); Phosphorus 3.2 mg/dL (2.4-5.1); Potassium 2.7 mmol/L (3.5-5.1); Sodium 139 mmol/L (136-145); Total Protein 4.3 g/dL (5.7-8.2); Triglycerides 84 mg/dL (< 150)
[2023-10-30 07:02] LABS: Alanine Aminotransferase < 9 U/L (7-40)
[2023-10-30] MEDS: POTASSIUM EFFERVESENT TAB 25 MEQ PO ONE (09:16)
[2023-10-30] MEDS ORDERED: POTASSIUM CHL 20MEQ/100ML 100 ML IV SCH (09:30)
[2023-10-30] MEDS: AMPICILLIN INJ 500 MG in SODIUM CHL 0.9% 50 ML IV SCH (12:54)
[2023-10-30] MEDS: TPN PER PHARMACY IV NR (20:00)
[2023-10-31] VITALS (8 sets, daily range): BP systolic 99–134; BP diastolic 59–73; PULSE 67–110; RESP 14–20; TEMP 98.1–99.2; O2SAT 92–99
[2023-10-31 07:31] LABS: Calcium 7.4 mg/dL (8.7-10.4); Chloride 105 mmol/L (98-107); Potassium 2.8 mmol/L (3.5-5.1); Sodium 140 mmol/L (136-145)
[2023-10-31 07:32] LABS: Anion Gap 7 (5-15); Carbon Dioxide 28 mmol/L (20-30)
[2023-10-31 07:35] LABS: Albumin 2.4 g/dL (3.2-4.8)
[2023-10-31 07:37] LABS: GFR African American 49 mL/min; GFR Non-African American 40 mL/min; Glucose 125 mg/dL (74-106)
[2023-10-31 07:38] LABS: BUN/Creatinine Ratio 27.3 (10.0-20.0); Blood Urea Nitrogen 38 mg/dL (9-23); Magnesium 1.6 mg/dL (1.6-2.6)
[2023-10-31 07:40] LABS: Phosphorus 3.1 mg/dL (2.4-5.1)
[2023-10-31 08:07] LABS: Basophils # (auto) 0 10 ^3/uL (0-0.2); Eosinophils # (auto) 0.1 10 ^3/uL (0-0.8); Monocytes # (auto) 0.6 10 ^3/uL (0-1.3); White Blood Cell 9.4 10^3/uL (4.4-10.8)
[2023-10-31 08:09] LABS: Basophils % (auto) 0.3 % (0.0-2.0); Eosinophils % (auto) 0.7 % (0.0-7.0); Hematocrit 23.4 % (36.0-46.0); Hemoglobin 7.9 g/dL (12.2-16.2); Lymphocytes % (auto) 10.7 % (10.0-50.0); Mean Corpuscular Hgb Conc. 33.6 g/dL (32.0-36.0); Mean Corpuscular Volume 83.4 fL (80.0-100.0); Monocytes % (auto) 6.2 % (0.0-12.0); Neutrophils # (auto) 7.7 10 ^3/uL (1.6-8.6); Neutrophils % (auto) 82.1 % (37.0-80.0); Nucleated Red Blood Cells % 0.1 %; Platelet Count (auto) 221 10^3/uL (140-450); Red Cell Distribution Width 19.4 % (11.8-14.3)
[2023-10-31] MEDS: POTASSIUM EFFERVESENT TAB 25 MEQ PO ONE (08:55)
[2023-10-31] MEDS ORDERED: POTASSIUM EFFERVESENT TAB 25 MEQ PO SCH (10:00)
[2023-10-31] MEDS ORDERED: GASTROGRAFIN 120 ML SOL ONE (14:32)
[2023-10-31] MEDS: THROAT LOZENGES(CEPASTAT) MT PRN (17:56)
[2023-10-31] MEDS: POTASSIUM EFFERVESENT TAB 25 MEQ PO SCH (20:00)
[2023-10-31] MEDS: POTASSIUM CHL 20MEQ/100ML 100 ML IV SCH (20:49)
[2023-10-31] MEDS: TPN PER PHARMACY IV NR (21:02)
[2023-11-01] VITALS (8 sets, daily range): BP systolic 111–133; BP diastolic 54–74; PULSE 67–112; RESP 15–20; TEMP 97.9–99.1; O2SAT 92–99
[2023-11-01 08:25] LABS: Albumin 2.4 g/dL (3.2-4.8); Alkaline Phosphatase 267 U/L (46-116); Anion Gap 5 (5-15); Aspartate Aminotransferase 10 U/L (13-40); BUN/Creatinine Ratio 22.2 (10.0-20.0); Calcium 7.9 mg/dL (8.7-10.4); Carbon Dioxide 27 mmol/L (20-30); Chloride 108 mmol/L (98-107); Glucose 172 mg/dL (74-106); Magnesium 1.6 mg/dL (1.6-2.6); Potassium 3.5 mmol/L (3.5-5.1); Sodium 140 mmol/L (136-145)
[2023-11-01 08:26] LABS: Bilirubin, Total 0.3 mg/dL (0.2-1.0); Phosphorus 1.8 mg/dL (2.4-5.1); Total Protein 4.3 g/dL (5.7-8.2)
[2023-11-01 08:27] LABS: Alanine Aminotransferase < 9 U/L (7-40); Blood Urea Nitrogen 28 mg/dL (9-23)
[2023-11-01] MEDS: SODIUM PHOSPHATES 24 MEQ in SODIUM CHL 0.9% 100 ML IV ONE (12:02)
[2023-11-01] MEDS ORDERED: POTASSIUM PHOSPHATE 44 MEQ in D5W 5% 250 ML IV ONE (12:45)
[2023-11-01] MEDS ORDERED: VANCOMYCIN PER PHARMACY 0 MG IV SCH (14:15)
[2023-11-01] MEDS ORDERED: VANCOMYCIN 1.25GM/250ML 250 ML IV ONE (14:30)
[2023-11-01] MEDS: VANCOMYCIN 1GM/200ML 200 ML IV SCH (17:21)
[2023-11-01] MEDS: POTASSIUM PHOSPHATE 22 MEQ in SODIUM CHL 0.9% 100 ML IV ONE (18:27)
[2023-11-01] MEDS ORDERED: TPN PER PHARMACY IV NR (20:00)
[2023-11-01] MEDS: TPN PER PHARMACY IV NR (20:04)
[2023-11-01] MEDS: MICAFUNGIN SODIUM 100 MG in SODIUM CHL 0.9% 100 ML IV ONE (23:00)
[2023-11-02] VITALS (8 sets, daily range): BP systolic 105–137; BP diastolic 58–76; PULSE 67–122; RESP 15–21; TEMP 97.8–98.9; O2SAT 95–98
[2023-11-02 07:48] LABS: Basophils # (auto) 0 10 ^3/uL (0-0.2); Eosinophils # (auto) 0.1 10 ^3/uL (0-0.8); Lymphocytes # (auto) 1.2 10 ^3/uL (0.4-5.4); Monocytes # (auto) 0.8 10 ^3/uL (0-1.3)
[2023-11-02 07:50] LABS: Basophils % (auto) 0.3 % (0.0-2.0); Eosinophils % (auto) 0.7 % (0.0-7.0); Lymphocytes % (auto) 11.1 % (10.0-50.0); Mean Corpuscular Hemoglobin 27.9 pg (28.0-32.0); Mean Corpuscular Hgb Conc. 33.4 g/dL (32.0-36.0); Mean Corpuscular Volume 83.7 fL (80.0-100.0); Monocytes % (auto) 7.3 % (0.0-12.0); Neutrophils # (auto) 8.4 10 ^3/uL (1.6-8.6); Neutrophils % (auto) 80.6 % (37.0-80.0); Platelet Count (auto) 409 10^3/uL (140-450); Red Blood Cells 2.87 10^6/uL (4.0-5.20); Red Cell Distribution Width 19.3 % (11.8-14.3); White Blood Cell 10.5 10^3/uL (4.4-10.8)
[2023-11-02 08:03] LABS: Albumin 2.4 g/dL (3.2-4.8); Alkaline Phosphatase 239 U/L (46-116); Anion Gap 5 (5-15); Aspartate Aminotransferase 8 U/L (13-40); BUN/Creatinine Ratio 18.3 (10.0-20.0); Blood Urea Nitrogen 21 mg/dL (9-23); Calcium 7.6 mg/dL (8.7-10.4); Carbon Dioxide 28 mmol/L (20-30); Chloride 107 mmol/L (98-107); Glucose 148 mg/dL (74-106); Magnesium 1.9 mg/dL (1.6-2.6); Potassium 2.9 mmol/L (3.5-5.1); Sodium 140 mmol/L (136-145); Triglycerides 94 mg/dL (< 150)
[2023-11-02 08:04] LABS: Phosphorus 3.5 mg/dL (2.4-5.1)
[2023-11-02 08:05] LABS: Alanine Aminotransferase < 9 U/L (7-40); Bilirubin, Total 0.2 mg/dL (0.2-1.0); Total Protein 4.5 g/dL (5.7-8.2)
[2023-11-02] MEDS: POTASSIUM CHL 20MEQ/100ML 100 ML IV SCH (09:51)
[2023-11-02] MEDS: FAT EMULSION 150 ML, SODIUM PHOSPHATES 20 MEQ, POTASSIUM ACETATE 40 MEQ, POTASSIUM PHOS... IV NR (20:00)
[2023-11-02] MEDS: MICAFUNGIN SODIUM 100 MG in SODIUM CHL 0.9% 100 ML IV SCH (22:42)
[2023-11-03] VITALS (9 sets, daily range): BP systolic 104–133; BP diastolic 56–70; PULSE 67–116; RESP 15–22; TEMP 98.5–99.8; O2SAT 93–98
[2023-11-03 05:53] LABS: Basophils # (auto) 0 10 ^3/uL (0-0.2); Eosinophils # (auto) 0.1 10 ^3/uL (0-0.8); Eosinophils % (auto) 0.7 % (0.0-7.0); Hemoglobin 7.9 g/dL (12.2-16.2); Lymphocytes # (auto) 1.4 10 ^3/uL (0.4-5.4); Monocytes # (auto) 0.8 10 ^3/uL (0-1.3); Red Cell Distribution Width 19.3 % (11.8-14.3)
[2023-11-03 05:56] LABS: Basophils % (auto) 0.4 % (0.0-2.0); Hematocrit 24.1 % (36.0-46.0); Lymphocytes % (auto) 11.8 % (10.0-50.0); Mean Corpuscular Hemoglobin 27.6 pg (28.0-32.0); Mean Corpuscular Hgb Conc. 32.8 g/dL (32.0-36.0); Mean Corpuscular Volume 84.2 fL (80.0-100.0); Monocytes % (auto) 6.9 % (0.0-12.0); Neutrophils # (auto) 9.3 10 ^3/uL (1.6-8.6); Neutrophils % (auto) 80.2 % (37.0-80.0); Platelet Count (auto) 520 10^3/uL (140-450); Red Blood Cells 2.86 10^6/uL (4.0-5.20); White Blood Cell 11.6 10^3/uL (4.4-10.8)
[2023-11-03 06:30] LABS: Chloride 107 mmol/L (98-107); Potassium 3.7 mmol/L (3.5-5.1); Sodium 139 mmol/L (136-145)
[2023-11-03 06:31] LABS: Anion Gap 5 (5-15); Carbon Dioxide 27 mmol/L (20-30)
[2023-11-03 06:32] LABS: Calcium 7.5 mg/dL (8.7-10.4)
[2023-11-03 06:36] LABS: Glucose 89 mg/dL (74-106)
[2023-11-03 06:37] LABS: BUN/Creatinine Ratio 18.3 (10.0-20.0); Blood Urea Nitrogen 20 mg/dL (9-23); Magnesium 1.7 mg/dL (1.6-2.6)
[2023-11-03] MEDS: FUROSEMIDE 40 MG/4 ML VIAL IV SCH (11:51)
[2023-11-03] MEDS: PANTOPRAZOLE 40 MG TAB PO SCH (17:00)
[2023-11-03] MEDS: NYSTATIN (MOUTH-THROAT) 500,000 UNITS/5 ML SUSP MT SCH (17:23)
[2023-11-03] MEDS: AMPICILLIN & SULBACTAM SODIUM 3 GM in SODIUM CHL 0.9% 100 ML IV SCH (17:24)
[2023-11-04] VITALS (8 sets, daily range): BP systolic 107–130; BP diastolic 51–74; PULSE 84–116; RESP 15–22; TEMP 98.2–98.8; O2SAT 94–100
[2023-11-04 06:31] LABS: Basophils # (auto) 0.1 10 ^3/uL (0-0.2); Eosinophils # (auto) 0.1 10 ^3/uL (0-0.8); Neutrophils # (auto) 8.5 10 ^3/uL (1.6-8.6)
[2023-11-04 06:37] LABS: Chloride 106 mmol/L (98-107); Potassium 3.3 mmol/L (3.5-5.1); Sodium 139 mmol/L (136-145)
[2023-11-04 06:38] LABS: Anion Gap 6 (5-15); Carbon Dioxide 27 mmol/L (20-30)
[2023-11-04 06:42] LABS: Basophils % (auto) 0.7 % (0.0-2.0); Eosinophils % (auto) 0.8 % (0.0-7.0); Hematocrit 22.9 % (36.0-46.0); Hemoglobin 7.8 g/dL (12.2-16.2); Lymphocytes # (auto) 1.8 10 ^3/uL (0.4-5.4); Lymphocytes % (auto) 15.4 % (10.0-50.0); Mean Corpuscular Hemoglobin 28.4 pg (28.0-32.0); Mean Corpuscular Hgb Conc. 33.8 g/dL (32.0-36.0); Mean Corpuscular Volume 84.1 fL (80.0-100.0); Monocytes % (auto) 8.7 % (0.0-12.0); Neutrophils % (auto) 74.4 % (37.0-80.0); Platelet Count (auto) 617 10^3/uL (140-450); Red Blood Cells 2.73 10^6/uL (4.0-5.20); Red Cell Distribution Width 19.7 % (11.8-14.3); White Blood Cell 11.5 10^3/uL (4.4-10.8)
[2023-11-04 06:43] LABS: BUN/Creatinine Ratio 15.5 (10.0-20.0); Blood Urea Nitrogen 17 mg/dL (9-23); Glucose 85 mg/dL (74-106)
[2023-11-04] MEDS: POTASSIUM CHL 20MEQ/100ML 100 ML IV SCH (10:39)
[2023-11-05] VITALS (7 sets, daily range): BP systolic 119–143; BP diastolic 56–80; PULSE 90–110; RESP 14–18; TEMP 36.4; O2SAT 96–98
[2023-11-05 06:31] LABS: Anion Gap 7 (5-15); Carbon Dioxide 25 mmol/L (20-30); Chloride 110 mmol/L (98-107); Potassium 3.3 mmol/L (3.5-5.1); Sodium 142 mmol/L (136-145)
[2023-11-05 06:32] LABS: Calcium 7.7 mg/dL (8.7-10.4)
[2023-11-05 06:37] LABS: BUN/Creatinine Ratio 11.3 (10.0-20.0); Blood Urea Nitrogen 12 mg/dL (9-23)
[2023-11-05 06:38] LABS: Magnesium 1.4 mg/dL (1.6-2.6)
[2023-11-05 06:42] LABS: Glucose 79 mg/dL (74-106)
[2023-11-05] MEDS: POTASSIUM EFFERVESENT TAB 25 MEQ PO ONE (09:01)
[2023-11-05] MEDS: MAGNESIUM SULFATE 1GM/100ML 100 ML IV ONE (09:03)
[2023-11-05] MEDS: FUROSEMIDE 40 MG/4 ML VIAL IV ONE (14:30)
[2023-11-05] MEDS ORDERED: AMOXICILLIN/CLAVUL 875 MG TAB PO SCH (22:00)
[2023-11-06] MEDS ORDERED: FLUCONAZOLE 100 MG TAB PO SCH (10:00)
== END 2023-11-05 17:53 | DRG 853 ==
LOC: ER 10:00 → TELE 11:59 → ICU WEST 14:52 → TELE-CENTR 10-28 16:29
PROVIDERS: ADMIT Nurse Practitioner Family; ATTEND Hospitalist
PROC: 5A1955Z Respiratory Ventilation, Greater than 96 Consecutive Hours (ICD-10-PCS; 2023-10-20)
PROC: 02HV33Z Insertion of Infusion Device into Superior Vena Cava, Percutaneous Approach (ICD-10-PCS; 2023-10-20)
PROC: 0BH17EZ Insertion of Endotracheal Airway into Trachea, Via Natural or Artificial Opening (ICD-10-PCS; 2023-10-20)
PROC: B548ZZA Ultrasonography of Superior Vena Cava, Guidance (ICD-10-PCS; 2023-10-20)
PROC: 03HY32Z Insertion of Monitoring Device into Upper Artery, Percutaneous Approach (ICD-10-PCS; 2023-10-20)
PROC: 0DQ60ZZ Repair Stomach, Open Approach (ICD-10-PCS; principal; 2023-10-20 14:42)
PROC: 05HB33Z Insertion of Infusion Device into Right Basilic Vein, Percutaneous Approach (ICD-10-PCS; 2023-10-22)
PROC: B54MZZA Ultrasonography of Right Upper Extremity Veins, Guidance (ICD-10-PCS; 2023-10-22)
PROC: 30233N1 Transfusion of Nonautologous Red Blood Cells into Peripheral Vein, Percutaneous Approach (ICD-10-PCS; 2023-10-23)
PROC: 5A0935A Assistance with Respiratory Ventilation, Less than 24 Consecutive Hours, High Flow/Velocity Cannula (ICD-10-PCS; 2023-10-26)
PROC: 5A0935A Assistance with Respiratory Ventilation, Less than 24 Consecutive Hours, High Flow/Velocity Cannula (ICD-10-PCS; 2023-10-27)
DX: A41.9 Sepsis, unspecified organism (principal); J96.01 Acute respiratory failure with hypoxia; K65.9 Peritonitis, unspecified; R57.1 Hypovolemic shock; J96.02 Acute respiratory failure with hypercapnia; K25.5 Chronic or unspecified gastric ulcer with perforation; R65.21 Severe sepsis with septic shock; K65.1 Peritoneal abscess; R18.8 Other ascites; N17.9 Acute kidney failure, unspecified; N39.0 Urinary tract infection, site not specified; E87.4 Mixed disorder of acid-base balance; K57.20 Diverticulitis of large intestine with perforation and abscess without bleeding; Z20.822 Contact with and (suspected) exposure to COVID-19; D64.9 Anemia, unspecified; E11.65 Type 2 diabetes mellitus with hyperglycemia; E87.6 Hypokalemia; E78.5 Hyperlipidemia, unspecified; B95.2 Enterococcus as the cause of diseases classified elsewhere; I11.9 Hypertensive heart disease without heart failure; K21.9 Gastro-esophageal reflux disease without esophagitis; B96.20 Unspecified Escherichia coli [E. coli] as the cause of diseases classified elsewhere; D69.6 Thrombocytopenia, unspecified; E83.42 Hypomagnesemia; Z82.49 Family history of ischemic heart disease and other diseases of the circulatory system; Z83.3 Family history of diabetes mellitus
CPT/HCPCS: 0808T; 96365; 96375; 99291; 36415; 36600; 71045; 74176; 74246; 74250; 76604; 76937; 80048; 80053; 80061; 80069; 81001; 82310; 82570; 82805; 82962; 83036; 83605; 83690; 83735; 84100; 84132; 84156; 84166; 84300; 84478; 84484; 85007; 85025; 85027; 85610; 85730; 86850; 86900; 86901; 86920; 87040; 87070; 87075; 87077; 87081; 87086; 87088; 87186; 87205; 87426; 87493; 93005; 93306; 94002; 94003; 94640; 97110; 97116; 97163; 97530; G0378; J1815; J2248; J2250; J2405; J2470; J3480; J3490; J7060; P9047